=== PATIENT | male | born 1995 | race African-American/Black ===

== ENCOUNTER 2021-03-19 17:28 | Emergency (ER) | payer BC, SELFPAY ==
[2021-03-19 17:33] VITALS: BP 158/91; PULSE 87; RESP 18; TEMP 37.2; O2SAT 97
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
== END 2021-03-19 18:30 | disposition home or self-care (01) ==
PROVIDERS: Emergency Provider Emergency Medicine
DX: S01.511A Laceration without foreign body of lip, initial encounter (principal); W22.09XA Striking against other stationary object, initial encounter
CPT/HCPCS: 12011

== ENCOUNTER 2022-07-31 11:55 | Emergency (ER) | payer BC, SELFPAY ==
[2022-07-31 12:06] VITALS: BP 148/78; PULSE 91; RESP 18; TEMP 37.1; O2SAT 98
--- NOTE | 2022-07-31 13:40 | W.ED.GENAD ---
Discharge Plan Disposition Patient Disposition: Home Condition: Stable Discharge Details Chief Complaint: Headache Clinical Impression: Headache Primary Care Provider: Unknown,Unknown ED Provider: Ivan Krishnamurthy Home Meds and New Rx's Prescriptions: No Action No Known Home Meds Discharge Instructions Instructions: General Headache (ED) Additional Instructions: follow up with your primary care provider in 1-2 weeks especially if symptoms continue if you feel more ill, have severe worsening pain or fevers return to the emergency department Medical Decision Making 27 yo male who denies chronic medical problems who comes in with chief complaint of 4 days of headache. He localizes the pain to the right supraorbital region and states it's a constant pressure like pain. Denies severe sudden pain or fevers, no neck stiffness, no vision changes or eye pain. He arrives stable speaking clearly in no distress and appears well. He has a normal gait, CN II-XII intact, perrl, no facial or periorbital swelling, normal appearing conjunctiva. No meningismus. His symptoms and location of pain make cluster headache vs migraine high on the differential, will treat with compazine and toradol and reassess. 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 If no significant improvement with medications will consider ct imaging but do not feel they are indicated at this time. patient feels better requesting d/c, still no meningismus and no deficits on exam and appears well, advised to f/u with pcp and return precautions given, suspect migraine vs cluster headache Differential Diagnosis Differential Diagnosis: migraine, cluster headache, tension headache HPI General Mode of arrival: ambulatory. Date/Time Provider Initiated Documentation: 07/31/22 13:31. Limitations to Documentation: no limitations. Information obtained by: patient. History of Present Illness 27 year old M presents to the emergency department with the chief complaint of headache, described as moderate, Patient started experiencing this day(s) (4) and it has been constant. No relieving factors improve symptom(s), No exacerbating factors reported . Patient notes no other symptoms.; denies fever/chills. Related Data Home Medications Medication Instructions Recorded Confirmed Unknown [No Known Home Meds] 03/19/21 03/19/21 Allergies Allergy/AdvReac Type Severity Reaction Status Date / Time No Known Allergies Allergy Unverified 03/19/21 17:36 General Stated Complaint: Headache PRINCE: 3 Review of Systems All systems reviewed & are unremarkable except as noted in HPI and below Constitutional Constitutional: Denies chills, Denies fever(s) and Denies weakness Eyes Eyes: Denies loss of vision Cardiovascular Cardiovascular: Denies chest pain and Denies dyspnea Respiratory Respiratory: Denies cough and Denies dyspnea Gastrointestinal Gastrointestinal: Denies abdominal pain, Denies nausea and Denies vomiting Musculoskeletal Musculoskeletal: Denies joint swelling Neurologic Neurologic: Denies loss of vision and Denies weakness PFSH All Active Problems (Updated 07/31/22 @ 15:16 by Ivan Krishnamurthy MD) Headache (Acute) Social History Smoking/Tobacco Use Status: Current every day Tobacco Type: e-cigarettes Smoking risk assessment performed?: Yes Alcohol Intake: current Alcohol Intake frequency: a few times a month Drug use: Occasionally Substance use type: marijuana Do you feel safe at home: Yes Do you feel safe in your relationship?: Yes Exam Const General: no acute distress Orientation: alert HENMT Head: normal to inspection Ears: external ears normal General nose exam: external nose normal Mouth: moist mucous membranes Eyes General: appearance normal, both eyes and all related structures Neck Neck: normal visual inspection Resp Effort & Inspection: normal respiratory effort and able to speak in complete sentences Cardio Rate: regular rate Skin General skin exam: no rashes or lesions noted Neuro General: patient alert, patient oriented x3 and no meningeal signs Cranial Nerves: CN's II-XI intact bilaterally, PERRL, accommodation normal and EOM intact bilaterally Extrem General: normal to inspection Psych Mental Status: mental status grossly normal Course Vital Signs Vital signs: Vital Signs Temperature 37.1 C 07/31/22 12:06 Pulse 91 H 07/31/22 12:06 Respiratory Rate 18 07/31/22 12:06 Blood Pressure 148/78 H 07/31/22 12:06 Pulse Oximetry 98 07/31/22 12:06 Temperature 37.1 C 07/31/22 12:06 Temperature Source Tympanic 07/31/22 12:06 Pulse 91 H 07/31/22 12:06 Respiratory Rate 18 07/31/22 12:06 Respiratory Effort Normal 07/31/22 12:09 Blood Pressure 148/78 H 07/31/22 12:06 Pulse Oximetry 98 07/31/22 12:06 Oxygen Delivery Method Room Air 07/31/22 12:06 Oxygen Flow Rate 0 07/31/22 12:06 Pain Level 5 07/31/22 12:06 PAWSS Have you Been Recently Intoxicated or Drunk Within the Last 30 days?: No Have you Ever Experienced Previous Episodes of Alcohol Withdrawal?: No Have you ever Experienced Withdrawal Seizures?: No Have you ever Experienced Delirium Tremens(DT)s?: No Have you ever undergone Alcohol Rehabilitation Treatment (i.e, inpt ot outpatient treatment programs)?: No Have you ever Experienced Blackouts?: No Have you ever Combined Alcohol with other Downers within the last 90 days?: No Have you ever Combined Alcohol with any other Substance of Abuse during the last 90 days?: No Positive Blood Alcohol level on Presentation? [PCS.BAL]: No Evidence of Increased Autonomic Activity (i.e. HR>120, tremor, sweating, agitation, nausea)?: No Result: 0
[2022-07-31] MEDS: Prochlorperazine 10 MG/2 ML VIAL IVP (14:01)
[2022-07-31] MEDS: diphenhydrAMINE 50 MG/ML VIAL 12.5 MG IVP (14:01)
[2022-07-31] MEDS: Normal Saline 1,000 ML 1000 ML IV (14:01)
[2022-07-31] MEDS: Ketorolac 15 MG/ML VIAL IVP (14:01)
[2022-07-31 15:40] VITALS: PULSE 88; O2SAT 98
== END 2022-07-31 15:33 | disposition home or self-care (01) ==
PROVIDERS: Emergency Provider Emergency Medicine
DX: R51.9 Headache, unspecified (principal)
CPT/HCPCS: 96361; 96374; 96375; 99284; J0780; J1200; J1885